=== PATIENT | male | born 1985 | race Caucasian/White ===

== ENCOUNTER 2017-10-05 02:04 | Observation (INO) | payer BC, OTHER ==
[~2017-10-05] VITALS: Ht 177.8 cm; Wt 100.0 kg
[~2017-10-05 02:04] MED LIST: CEPH500C3 PO; LORT7.5T3 PO; Z.0.NO CURRENT MEDS
[2017-10-05 02:18] VITALS: BP 161/86; PULSE 74; RESP 18; TEMP 97.9; O2SAT 97
[2017-10-05 03:29] VITALS: O2SAT 98
[2017-10-05 03:45] LABS: AUTOMATED NEUTROPHIL # 8.2 TH/MM3 (1.8-7.7); BASOPHIL % 0.4 % (0.0-2.0); EOSINOPHIL # 0.1 TH/MM3 (0-0.4); EOSINOPHIL % 1.2 % (0.0-4.0); HEMATOCRIT 45.4 % (39.0-51.0); HEMOGLOBIN 15.8 GM/DL (13.0-17.0); LYMPH % 20.2 % (9.0-44.0); LYMPHOCYTE # 2.3 TH/MM3 (1.0-4.8); MEAN CELL VOLUME 85.6 FL (80.0-100.0); MEAN CORPUSCULAR HEMOGLOBIN 29.8 PG (27.0-34.0); MEAN CORPUSCULAR HGB CONC 34.8 % (32.0-36.0); MEAN PLATELET VOLUME 7.6 FL (7.0-11.0); MONO % 5.8 % (0.0-8.0); MONOCYTE # 0.6 TH/MM3 (0-0.9); NEUT % 72.4 % (16.0-70.0); PLATELET COUNT 251 TH/MM3 (150-450); RED CELL DISTRIBUTION WIDTH 13.1 % (11.6-17.2); WHITE BLOOD COUNT 11.3 TH/MM3 (4.0-11.0)
[2017-10-05 03:50] LABS: BILIRUBIN, URINE NEG (NEG); BLOOD, URINE NEG (NEG); GLUCOSE,URINE NEG (NEG); KETONE, URINE NEG (NEG); MUCUS URINE FEW /lpf (OCC); NITRITE,URINE NEG (NEG); PH, URINE 6.5 (5.0-8.5); SQUAMOUS EPITHELIAL CELL URINE <1 /hpf (0-5); URINE COLOR YELLOW (YELLW/STRAW); URINE LEUKOCYTE ESTERASE NEG (NEG)
--- NOTE | 2017-10-05 03:57 | PD ---
HPI Chief Complaint: Abdominal Pain Time Seen by Provider: 03:54 Travel History International Travel<30 days: No Contact w/Intl Traveler<30days: No Traveled to known affect area: No History of Present Illness HPI The patient is a 31 year old male who presents to the [facility] emergency department with a history of abdominal pain that began at 12:30 AM. The is located around the umbilicus. He denies having any pain like this previously it woke him from sound sleep. It is sharp in character. It has been constant since the onset. It is gradually worsened in severity and is now a 7-8/10 in severity. He induced vomiting without improvement. He denies any nausea or vomiting since then. He denies having any diarrhea. He reports that he last moved his bowels earlier today. The patient reports that his last meal was at 6 PM. The patient denies any recent indigestion or heartburn. He denies having any problems with fatty food intolerance. He denies having any known recent fevers, cough or congestion, neck pain, chest pain, shortness of breath, urinary symptoms, or neurologic symptoms. The patient reports that he is currently on doxycycline since Tuesday. He is taking this medicine in preparation for his having in vitro fertilization. [facility] Past Medical History Narrative Medical The patient's past medical history is reportedly none. Medical History: Denies Significant Hx Cancer: No Diabetes: No Diminished Hearing: No Glaucoma: No Hepatitis: No Hiatal Hernia: No Hypertension: No Thyroid Disease: No Tetanus Vaccination: Unknown Influenza Vaccination: No Past Surgical History Narrative Surgical The patient's past surgical history is significant for bilateral foot surgeries , mass behind ear removed. Abdominal Surgery: No Cardiac Surgery: No Ear Surgery: Yes (LEFT EAR MASS 2005) Endocrine Surgery: No Eye Surgery: No Genitourinary Surgery: No Gynecologic Surgery: No Oral Surgery: No Pacemaker: No Thoracic Surgery: No Other Surgery: Yes (feet surgeries) Social History Alcohol Use: Yes (OCCAS) Tobacco Use: No Substance Use: No Allergies-Medications (Allergen,Severity, Reaction): Coded Allergies: No Known Allergies (Verified Adverse Reaction, Unknown, 10/05/17) Reported Meds & Prescriptions Reported Meds & Active Scripts Active Narrative Medication doxycycline- for preparation for ivf transfer. on it since tuesday twice a day. Review of Systems Except as stated in HPI: all other systems reviewed are Neg General / Constitutional: No: Fever Eyes: No: Visual changes HENT: No: Headaches Cardiovascular: No: Chest Pain or Discomfort Respiratory: No: Shortness of Breath Gastrointestinal: Positive: Vomiting, Abdominal Pain, No: Nausea, Diarrhea, Changes in Bowel Habits Genitourinary: No: Dysuria Musculoskeletal: No: Pain Skin: No Rash Neurologic: No: Weakness Psychiatric: No: Depression Endocrine: No: Polydipsia Hematologic/Lymphatic: No: Easy Bruising Physical Exam Narrative General: The patient is a well-developed well-nourished male in no acute distress. Head and Neck exam: Head is normocephalic atraumatic. Eyes: EOMI, pupils are equal round and reactive to light. Nose: Midline septum with pink mucous membranes Mouth: Dentition unremarkable. Moist mucus membranes. Posterior oropharynx is not erythematous. No tonsillar hypertrophy. Uvula midline. Airway patent. Neck: No palpable lymphadenopathy. No nuchal rigidity. No thyromegaly. Cardiovascular: Regular rate and rhythm without murmurs, gallops, or rubs. Lungs: Clear to auscultation bilaterally. No wheezes, rhonchi, or rales. Abdomen: Soft, with tenderness on palpation of the bilateral upper and lower quadrants of the abdomen, most prominent he reports in the midepigastric area. No tenderness on palpation of the other quadrants of the abdomen. Normal bowel sounds are audible. The patient reports some tenderness on palpation over McBurney's point. No guarding, rebound, or rigidity. Negative Sanz sign. Extremities: No clubbing, cyanosis, or edema. 2+ pulses in all 4 extremities. Back: No spinous process tenderness to palpation. No costovertebral angle tenderness to palpation. Neurologic Exam: Grossly nonfocal. Skin Exam: No rash noted. Intact skin that is warm and dry. Data Data Last Documented VS Vital Signs Date Time Temp Pulse Resp B/P (MAP) Pulse Ox O2 Delivery O2 Flow Rate FiO2 10/05/17 03:29 98 Room Air 10/05/17 03:23 16 10/05/17 02:18 97.9 74 161/86 (111) Orders Orders Complete Blood Count With Diff (10/05/17 03:26) Comprehensive Metabolic Panel (10/05/17 03:26) Urinalysis - C+S If Indicated (10/05/17 03:26) Iv Access Insert/Monitor (10/05/17 03:26) Oxygen Administration (10/05/17 03:26) Oximetry (10/05/17 03:26) Lipase (10/05/17 03:26) Ondansetron Inj (Zofran Inj) (10/05/17 04:00) Sodium Chlor 0.9% 1000 Ml Inj (Ns 1000 M (10/05/17 04:00) Morphine Inj (Morphine Inj) (10/05/17 04:15) Ct Abd/Pel W Iv Contrast(Rout) (10/05/17 04:07) Morphine Inj (Morphine Inj) (10/05/17 05:00) Iohexol 350 Inj (Omnipaque 350 Inj) (10/05/17 04:54) Admit Order (Ed Use Only) (10/05/17 05:15) Piperacil-Tazo 3.375 Gm Premix (Zosyn 3. (10/05/17 05:15) Labs Laboratory Tests Test 10/05/17 03:30 White Blood Count 11.3 TH/MM3 Red Blood Count 5.30 MIL/MM3 Hemoglobin 15.8 GM/DL Hematocrit 45.4 % Mean Corpuscular Volume 85.6 FL Mean Corpuscular Hemoglobin 29.8 PG Mean Corpuscular Hemoglobin Concent 34.8 % Red Cell Distribution Width 13.1 % Platelet Count 251 TH/MM3 Mean Platelet Volume 7.6 FL Neutrophils (%) (Auto) 72.4 % Lymphocytes (%) (Auto) 20.2 % Monocytes (%) (Auto) 5.8 % Eosinophils (%) (Auto) 1.2 % Basophils (%) (Auto) 0.4 % Neutrophils # (Auto) 8.2 TH/MM3 Lymphocytes # (Auto) 2.3 TH/MM3 Monocytes # (Auto) 0.6 TH/MM3 Eosinophils # (Auto) 0.1 TH/MM3 Basophils # (Auto) 0.0 TH/MM3 CBC Comment DIFF FINAL Differential Comment Urine Color YELLOW Urine Turbidity CLEAR Urine pH 6.5 Urine Specific Prince 1.016 Urine Protein NEG mg/dL Urine Glucose (UA) NEG mg/dL Urine Ketones NEG mg/dL Urine Occult Blood NEG Urine Nitrite NEG Urine Bilirubin NEG Urine Urobilinogen LESS THAN 2.0 MG/DL Urine Leukocyte Esterase NEG Urine RBC LESS THAN 1 /hpf Urine WBC 1 /hpf Urine Squamous Epithelial Cells <1 /hpf Urine Mucus FEW /lpf Microscopic Urinalysis Comment CULT NOT INDICATED Blood Urea Nitrogen 16 MG/DL Creatinine 1.19 MG/DL Random Glucose 116 MG/DL Total Protein 8.1 GM/DL Albumin 4.8 GM/DL Calcium Level 10.3 MG/DL Alkaline Phosphatase 83 U/L Aspartate Amino Transf (AST/SGOT) 24 U/L Alanine Aminotransferase (ALT/SGPT) 66 U/L Total Bilirubin 0.6 MG/DL Sodium Level 143 MEQ/L Potassium Level 4.3 MEQ/L Chloride Level 105 MEQ/L Carbon Dioxide Level 32.1 MEQ/L Anion Gap 6 MEQ/L Estimat Glomerular Filtration Rate 70 ML/MIN Lipase 150 U/L MDM Medical Decision Making Medical Screen Exam Complete: Yes Emergency Medical Condition: Yes Medical Record Reviewed: Yes Differential Diagnosis Appendicitis, versus cholecystitis, versus biliary colic, versus pancreatitis, versus acid reflux, versus gastritis, versus peptic ulcer disease, versus mesenteric adenitis Narrative Course During the course of the patient's emergency department visit, the patient's history, examination, and differential diagnosis were reviewed with the patient. The patient was placed on a media monitor with oximetry and frequent blood pressure monitoring. The patient had IV access obtained and blood work sent for analysis. The patient was initially provided morphine for pain, Zofran for nausea, normal saline IV fluids. The patient's laboratory studies were reviewed and remarkable for a white count of 11.3, hemoglobin 15.8, platelets 251 was 72.4 neutrophils, CMP is remarkable for CO2 of 32.1. Glucose 116, calcium 10.3, lipase 150, urinalysis is within normal limits. Radiology studies were reviewed and remarkable for CT scan of the abdomen and pelvis that reveals a rounded calcification at the origin of the appendix measuring 7 mm. Medial to that there is a fluid-filled area and eventually a small area of air at the tip of the appendix. There is not a significant of amount of inflammation around the appendix but certainly this could be an early appendicitis. On the coronal reformats of the appendix, it is clearly dilated, however again grossly not inflamed except for some minimal wall thickening inferiorly. This is as read by the reading radiologist. A call was placed out to the general surgeon. I spoke to Dr. Black regarding this patient's case. He did agree to admit the patient for continued evaluation and treatment. He did agree with the patient receiving a dose of Zosyn. The patient's results were discussed with the patient, including the plan of care. I explained that further testing and/ or monitoring is indicated based on the patient's history, examination, and/ or laboratory findings. Therefore, I recommended admission for additional evaluation. The patient expressed understanding and was agreeable with this plan. The patient was admitted to the hospital in stable condition and sent to a bed under the care of the general surgeon. Physician Communication Physician Communication The patient's case including history, pertinent physical examination findings, and laboratory studies were discussed with Dr. Black at approximately 5:15 AM. It was agreed that the patient would be admitted to the surgeon's service. Diagnosis Primary Impression: Appendicitis Qualified Codes: K35.80 - Unspecified acute appendicitis Admitting Information Admitting Physician Requests: Rosibel Zavaleta MD October 05, 2017 03:57
[2017-10-05] MEDS ORDERED: ONDANSETRON HCL 4 MG/2 ML VIAL IV ONE (04:00)
[2017-10-05] MEDS ORDERED: SODIUM CHLOR 0.9% 1000 ML INJ 1,000 ML IV ONE (04:00)
[2017-10-05 04:11] LABS: ALBUMIN 4.8 GM/DL (3.4-5.0); ALT (GPT) 66 U/L (12-78); AST (GOT) 24 U/L (15-37); BICARBONATE 32.1 MEQ/L (21.0-32.0); BLOOD UREA NITROGEN 16 MG/DL (7-18); CALCIUM 10.3 MG/DL (8.5-10.1); CHLORIDE 105 MEQ/L (98-107); CREATININE 1.19 MG/DL (0.60-1.30); GLOMERULAR FILTRATION RATE 70 ML/MIN (>89); GLUCOSE,RANDOM 116 MG/DL (74-106); SODIUM (NA) 143 MEQ/L (136-145)
[2017-10-05 04:13] LABS: ALKALINE PHOSPHATASE 83 U/L (45-117); TOTAL BILIRUBIN ADULT 0.6 MG/DL (0.2-1.0); TOTAL PROTEIN 8.1 GM/DL (6.4-8.2)
[2017-10-05] MEDS ORDERED: MORPHINE SULFATE 4 MG/ML INJ IM ONE (04:15)
[2017-10-05] MEDS ORDERED: IOHEXOL 350 MG/ML 10 ML VIAL (for RAD DIAG) IVCONTRAST ONE (04:54)
[2017-10-05] MEDS ORDERED: MORPHINE SULFATE 4 MG/ML INJ IV PUSH ONE ×2 (05:00→06:00)
--- NOTE | 2017-10-05 05:05 | RADRPT ---
EXAM DATE/TIME: 10/05/2017 04:47 [place] COMPARISON: No previous studies available for comparison. INDICATIONS : Abdominal pain and elevated white count. IV CONTRAST: 100 cc Omnipaque 350 (iohexol) IV ORAL CONTRAST: No oral contrast ingested. RADIATION DOSE: 11.16 CTDIvol (mGy) MEDICAL HISTORY : None SURGICAL HISTORY : None. ENCOUNTER: Initial ACUITY: 1 day PAIN SCALE: 10/10 LOCATION: Abdomen. TECHNIQUE: Volumetric scanning of the abdomen and pelvis was performed. Using automated exposure control and ad justment of the mA and/or kV according to patient size, radiation dose was kept as low as reasonably achievable to obtain optimal diagnostic quality images. DICOM format image data is available electro nically for review and comparison. FINDINGS: LOWER LUNGS: The visualized lower lungs are clear. LIVER: Homogeneous density without lesion. There is no dilation of the biliary tree. No calcified gallston es. SPLEEN: Normal size without lesion. PANCREAS: Within normal limits. KIDNEYS: Normal in size and shape. There is no mass, stone or hydronephrosis other numerous benign left cysts . ADRENAL GLANDS: Within normal limits. VASCULAR: There is no aortic aneurysm. BOWEL/MESENTERY: There is a rounded calcification at the origin of the appendix measuring 7 mm. Medial to that is a fl uid filled area and eventually a small amount of air at the tip of the appendix. There is not a signi ficant amount of inflammation around the appendix but certainly could be an early appendicitis. On th e coronal reformats the appendix is clearly dilated but again not grossly inflamed except for some ma y be minimal wall thickening inferiorly. ABDOMINAL WALL: Within normal limits. RETROPERITONEUM: There is no lymphadenopathy. BLADDER: No wall thickening or mass. REPRODUCTIVE: Within normal limits. INGUINAL: There is no lymphadenopathy or hernia. MUSCULOSKELETAL: Within normal limits for patient age. CONCLUSION: Rounded appendicolith with a fluid filled slightly dilated appendix with small amount of air remainin g at the tip. There is not a significant amount of surrounding inflammatory stranding but could easi ly be early appendicitis. Kody Ornelas MD on October 05, 2017 at 5:01 Board Certified Radiologist. This report was verified electronically.
[2017-10-05] MEDS ORDERED: PIPERACIL-TAZO 3.375 GM PREMIX 50 ML IV ONE ×2 (05:15→12:15)
[2017-10-05 06:11] VITALS: BP 122/63; PULSE 85; RESP 16
[2017-10-05] MEDS ORDERED: MORPHINE SULFATE 4 MG/ML INJ IV PUSH PRN (07:30)
[2017-10-05] MEDS ORDERED: ONDANSETRON HCL 4 MG/2 ML VIAL IV PUSH PRN ×2 (07:30→12:45)
[2017-10-05] MEDS ORDERED: SODIUM CHLOR 0.9% 1000 ML INJ 1,000 ML IV SCH (07:30)
--- NOTE | 2017-10-05 09:42 | MH ---
cc: Kedar Amador MD DATE OF ADMISSION: 10/05/2017 DATE OF ADMISSION: 10/05/2017. CHIEF COMPLAINT: Abdominal pain, probable appendicitis. HISTORY OF PRESENT ILLNESS: Mr. Marshall is a very pleasant 31-year-old gentleman who reported to the Emergency Department late last night with complaints of a several-hour history of abdominal pain. He states the pain was in his central abdomen. He states he felt very nauseous and made himself vomit, but that did not relieve the pain. He woke his up and asked her to bring him to the emergency department. The patient reports he was feeling fine yesterday. He ate dinner with no problems. He moved his bowels yesterday with no problems. He denies any trauma or injury to his abdomen. He denies any fever or chills. He came to the ER where he was seen and evaluated by Dr. Rosibel Mckinney. Workup revealed a slight elevation of his white count and a CT concerning for a possible early appendicitis. Surgical consultation was requested. PAST MEDICAL HISTORY: He had ingrown toenails. PAST SURGICAL HISTORY: He had a mass removed behind his left ear and he has had bilateral great toe surgery for his ingrown toenails. MEDICATIONS: He is currently on doxycycline because his is undergoing in vitro fertilization. ALLERGIES: HE HAS NO KNOWN DRUG ALLERGIES. SOCIAL HISTORY: He does not smoke. He only drinks on a social basis. He lives here locally with his . FAMILY HISTORY: Reports his grandmother had breast cancer. REVIEW OF SYSTEMS: Please see HPI. PHYSICAL EXAMINATION: VITAL SIGNS: Temperature 97, pulse of 70, blood pressure 160/80, respiratory rate 20. GENERAL: A pleasant, muscular young male in no apparent distress. HEENT: Pupils equal and reactive to light. Anicteric sclerae white. Oropharynx is clear moist. NECK: Supple. No masses LUNGS: Clear to auscultation bilaterally. HEART: S1, S2. No murmur. ABDOMEN: Soft, tender in the right lower quadrant with some voluntary guarding. No abdominal masses. EXTREMITIES: Free range of motion x4. NEUROLOGIC: He is alert and oriented x3. IMAGING: CT scan of the abdomen and pelvis reveals an appendicolith with a dilated appendix. No significant inflammatory stranding is noted. LABORATORY DATA: White blood cell count 11, 72% neutrophils, hemoglobin 15, platelet count is 251. Electrolytes are all within normal limits. Urinalysis is negative. IMPRESSION: Probable early acute appendicitis. PLAN: The risks and benefits of laparoscopic appendectomy was discussed with him and his , and they are agreeable. The operating room was notified and he will be brought up immediately. MD PERI Vargas/RANDY , 09:18 AM , 09:41 AM
[2017-10-05] MEDS ORDERED: ACETAMINOPHEN 1000 MG/100 ML 100 ML IV ONE (11:01)
[2017-10-05] MEDS ORDERED: FAMOTIDINE 20 MG/2 ML VIAL ONE (11:29)
[2017-10-05] MEDS ORDERED: SUGAMMADEX SODIUM 200 MG/2 ML VIAL IV PUSH ONE (12:22)
[2017-10-05] MEDS ORDERED: KETOROLAC TROMETHAMINE 30 MG/ML (IVP) VIAL IVP PRN (12:45)
[2017-10-05] MEDS ORDERED: NALOXONE HCL 0.4 MG/ML AMP IV PUSH PRN (12:45)
[2017-10-05] MEDS ORDERED: Post-op Orders (for Pharmacy) XX ONE (12:45)
[2017-10-05] MEDS ORDERED: oxyCODONE/ACETAMINOPHEN 5 MG/325 MG TAB PO PRN ×2 (12:45)
[2017-10-05] MEDS ORDERED: MORPHINE SULFATE 8 MG/ML INJ IV PUSH PRN (12:45)
[2017-10-05] MEDS ORDERED: BUPIVACAINE/EPINEPHRINE 0.25% PF 10 ML VIAL INFIL ONE (12:47)
[2017-10-05] MEDS ORDERED: DO NOT ADM ANY ANTICOAGULANT DRUGS PRN (12:53)
[2017-10-05] MEDS ORDERED: MIDAZOLAM HCL 2 MG/2 ML VIAL ONE (12:58)
--- NOTE | 2017-10-05 13:13 | MP ---
cc: Kedar Amador MD DATE OF OPERATION: 10/05/2017 DATE OF OPERATION: 10/05/2017. PREOPERATIVE DIAGNOSIS: Acute appendicitis. POSTOPERATIVE DIAGNOSIS: Acute appendicitis. PROCEDURE PERFORMED: Laparoscopic appendectomy. SURGEON: Kedar Amador MD ANESTHESIA: General endotracheal. COMPLICATIONS: None. INDICATIONS FOR PROCEDURE: Mr. Marshall is a pleasant 31-year-old gentleman who presented to the Emergency Department early this morning with complaints of abdominal pain. He was worked up and found to have acute appendicitis. Risks and benefits of open laparoscopic, possible open appendectomy was discussed with him and his at the bedside and they were agreeable. DETAILS: The patient was identified, brought to the operating room, placed supine on the operating table. After adequate general endotracheal anesthesia was achieved, the abdomen was prepped and draped in standard surgical fashion. Supraumbilical space was anesthetized with 0.25% Marcaine. Supraumbilical incision was made. Dissection was carried down through subcutaneous tissue to the midline fascia. Midline fascia was then incised sharply. A finger was then placed in the peritoneal cavity without difficulty. Blunt balloon trocar was inserted, and the abdomen was insufflated to 15 mmHg using CO2 gas. Next, two 5 mm trocars were placed in the lower midline under direct vision. Attention was directed to the right lower quadrant where a distended, inflamed appendix was identified. There was a little bit of turbid fluid around the appendix and this was suctioned out. There was no evidence of gross perforation. The appendix was then grasped and elevated superiorly. Appendiceal mesentery was taken down with the harmonic scalpel to the level of the cecal base. Once the cecal base was achieved, two 2-0 PDS sutures were placed on the cecal base. The distal appendix was then transected with the harmonic scalpel. Appendix was placed in an Endopouch bag and brought out through the supraumbilical port. The appendix was sent to pathology for analysis. Appendix was noted to be markedly distended and inflamed. The abdominal cavity was then reevaluated. The stump was inspected, Endoloop loops checked and found to be intact without evidence of leakage. The stump was then copiously irrigated with normal saline solution. The pelvis was irrigated out with normal saline solution. All irrigant was then removed from the abdominal cavity. At this point, all trocars were removed under direct vision. Abdomen was desufflated. Midline fascia was repaired with a 0 Vicryl in a [id number] fashion. The skin was closed with 4-0 Vicryl. The patient tolerated the procedure well, was awakened and brought to Recovery in stable condition. Kedar MD PERI Bravo/RANDY , 12:47 PM , 01:13 PM
[2017-10-05] MEDS ORDERED: LACTATED RINGER'S 1000 ML INJ 1,000 ML IV SCH (14:00)
[2017-10-05] MEDS ORDERED: ROCURONIUM INJ 50 MG/5 ML SYRINGE IV PUSH ONE (14:35)
[2017-10-05] MEDS ORDERED: ONDANSETRON HCL 4 MG/2 ML VIAL IV PUSH ONE (14:35)
[2017-10-05] MEDS ORDERED: DEXAMETHASONE SOD PHOS 4 MG/ML VIAL IV ONE (14:35)
[2017-10-05] MEDS ORDERED: PHENYLEPH/NS 1000 MCG/10 ML SYR IV ONE (14:35)
[2017-10-05] MEDS ORDERED: KETOROLAC TROMETHAMINE 30 MG/ML (IVP) VIAL IV PUSH ONE (14:35)
[2017-10-05] MEDS ORDERED: LIDOCAINE HCL 1% PF 5 ML SYRINGE OTHER ONE (14:35)
[2017-10-05] MEDS ORDERED: PROPOFOL 200 MG/20 ML AMP IV ONE (14:35)
[2017-10-05] MEDS ORDERED: ePHEDrine/NS 25 MG/5 ML SYRINGE IV ONE (14:35)
[2017-10-05 15:05] VITALS: BP 109/68; PULSE 80; RESP 16; TEMP 98.7; O2SAT 96
== END 2017-10-05 14:36 | disposition home or self-care (01) ==
LOC: NEPE 02:04 → NEDA 05:17 → HPAC 09:18 → NEDH 09:18
PROVIDERS: ADMIT Surgery Trauma Surgery; ATTEND Surgery Trauma Surgery
DX: K35.80 Unspecified acute appendicitis (principal)
CPT/HCPCS: 00840; 44970; 74177; 80053; 81001; 83690; 85025; 88304; 96361; 96365; 96375; 96376; 99285; G0378; J0131; J1100; J1885; J2250; J2270; J2370; J2405; J2543; J3010; J7030; Q9967